=== PATIENT | female | born 1970 | race Caucasian/White ===

== ENCOUNTER → 2021-07-01 | Day surgery (SDC) | payer OTHER | END | disposition home or self-care (01) | LOC: JRADIR 10:09 | PROVIDERS: ATTEND Urology | PROC: BT04YZZ Plain Radiography of Kidneys, Ureters and Bladder using Other Contrast (ICD-10-PCS; principal; 2021-07-01) | DX: N39.0 Urinary tract infection, site not specified (principal) | CPT/HCPCS: 51600; 74430-TC-FY ==